=== PATIENT | male | born 1960 | race African-American/Black ===

== ENCOUNTER 2019-08-01 11:16 | Emergency (ER) | payer MEDICAID ==
[~2019-08-01] VITALS: Ht 188 cm; Wt 82.8 kg
[2019-08-01 11:32] VITALS: BP 118/79
[2019-08-01] MEDS ORDERED: METHOCARBAMOL 750 MG TABLET PO ONE (12:00)
[2019-08-01] MEDS ORDERED: IBUPROFEN 800 MG TABLET PO ONE (12:00)
[2019-08-01] MEDS ORDERED: IBUPROFEN 800 MG TABLET ONE (12:02)
[2019-08-01] MEDS ORDERED: METHOCARBAMOL 750 MG TABLET ONE (12:03)
--- NOTE | 2019-08-01 12:24 | NUR ---
pt medicated per emar, tolerated well. pt awaiting xray and dispo at this time.
--- NOTE | 2019-08-01 12:53 | NUR ---
pt given dc instructions and script, bus pass provided. pt educated regarding dc rx for robaxan and naproxen. pt ambulatory to dc with steady gait, all questions answered.
== END 2019-08-01 12:54 | disposition home or self-care (01) ==
LOC: ED 12:44
DX: G89.29 Other chronic pain (principal); M25.551 Pain in right hip; F17.200 Nicotine dependence, unspecified, uncomplicated; Z59.0 Homelessness
CPT/HCPCS: 99283